=== PATIENT | female | born 1960 | race Caucasian/White ===

== ENCOUNTER 2025-03-28 16:46 | Emergency (ER) | payer OTHER ==
[~2025-03-28] VITALS: Ht 167.6 cm; Wt 50.2 kg
[2025-03-28] MEDS ORDERED: LISINOPRIL20 MG PO (17:28)
[2025-03-28] MEDS ORDERED: ACETAMINOPHEN 500 MG TAB PO ONE (19:30)
[2025-03-28] MEDS ORDERED: IBUPROFEN 600 MG TAB PO ONE (19:30)
[2025-03-28] MEDS ORDERED: cloNIDine HCL 0.1 MG TAB PO ONE (19:30)
[2025-03-28 19:33] VITALS: BP 174/101
== END 2025-03-28 19:34 | disposition home or self-care (01) ==
LOC: ED 16:46
DX: H93.12 Tinnitus, left ear (principal); I10 Essential (primary) hypertension
CPT/HCPCS: 70450; 99284-25; A9270

== ENCOUNTER 2025-07-17 17:57 | Emergency (ER) | payer OTHER ==
[~2025-07-17] VITALS: Ht 167.6 cm; Wt 50.7 kg
[~2025-07-17 17:57] MED LIST: LISINOPRIL20 MG PO
[2025-07-17] MEDS ORDERED: COZAAR50 MG PO (18:15)
[2025-07-17 20:24] VITALS: BP 193/100
== END 2025-07-17 20:26 | disposition home or self-care (01) ==
LOC: ED 17:57
DX: S60.222A Contusion of left hand, initial encounter (principal); W07.XXXA Fall from chair, initial encounter; M19.042 Primary osteoarthritis, left hand; I10 Essential (primary) hypertension; J45.909 Unspecified asthma, uncomplicated; Z79.899 Other long term (current) drug therapy
CPT/HCPCS: 73110; 73130; 99283